=== PATIENT | female | born 1990 | race Caucasian/White ===

== ENCOUNTER 2020-07-15 18:37 | Inpatient (IN) ==
[2020-07-15] MEDS ORDERED: ICU PROTOCOL FOR HYPERGLYCEMIA PRN ×2 (20:15→20:46)
[2020-07-15] MEDS ORDERED: PROPOFOL IV EMULSION 10 MG/ML 100 ML VIAL IV ONE (20:20)
[2020-07-15] MEDS ORDERED: fentaNYL citrate 100 MCG/2 ML VIAL IV PRN (20:46)
[2020-07-15] MEDS ORDERED: STAT IV Infusion **Titration per Protocol STA (20:46)
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
--- NOTE | 2020-07-15 21:08 | History & Physical Report ---
Date of Service July 15, 2020 Assessment & Plan (1) Admitted to intensive care unit: Direct admission to ICU. Patient is ventilated therefore care directed by ICU team. Discussed case with Yair Florez PA-C. (2) Respiratory failure: Hypoxic. Resolved with mechanical ventilation. Managed per ICU team. (3) Polysubstance overdose: Suspected Ativan and doxepin overdose. (4) Suicide attempt: Consult psychiatry once patient is extubated. (5) Intentional drug overdose: (6) Hypokalemia: In ER at [facility]. Now resolved with IV replacement in ER. (7) Aspiration pneumonia: Continue Unasyn per ICU recommendations. SARS-COV-2 negative at [facility]. (8) Anxiety: PDMP confirmation patient prescribed lorazepam 1mg TID as outpatient (9) Depression: (10) Asthma: (11) DVT prophylaxis: Hepatin 5000 units SQ BID Admission and Anticipated Discharge Date Admission Date: July 15, 2020 History of Present Illness Chief Complaint: Polysubstance overdose Primary Care Provider: Irineo Ridley Hali Lopez is a 29 year old female who presents as direct admission from [facility] due to a drug overdose (suspected doxepin and Ativan). She was found unresponsive by her mother after suicidal text messages and brought via EMS. Two empty bottles of Ativan and doxepin were found with the patient with a fifth of liquor. She was in acute respiratory distress at scene with minimal respiratory effort, no change with 0.4mg Narcan. On arrival to ER patient was bagged with ambo-bag and subsequently intubated and mechanically ventilated. In depth history was taken from the mother by ICU OPAL and discussed with myself. Please see Critical care consult for in depth collateral history from her mother. In [facility] ER she underwent CT head showing no evidence of acute intracranial or skull abnormality. Influenza and COVID-19 PCR negative. Urine toxicology negative for amphetamines, barbiturates, benzodiazepines, ca nnabinoids, cocaine, opiates and phencyclidine. Alcohol level 29 mg/dL. Other labs relatively unremarkable other than potassium level 2.7 which was treated with x4 doses KCl IV 40meq. Allergies Allergy/AdvReac Type Severity Reaction Status Date / Time No Known Allergies Allergy Unverified 07/15/20 20:44 Past Med/Surg History Medical History (Updated 07/16/20 @ 11:55 by Gary Handy MD) Anxiety Asthma Depression Social History Smoking Status: Current every day smoker Cigarettes Per Day: 1 pack per day; Hx Alcohol Use: Yes Hx Substance Use: Yes Preferred Language: Estonian Communication Ability: Unable Drugless Physician Required: No Beliefs That Will Affect Care: None Current Living Situation: Alone Current Living Situation Comment: lives w/ kids Feels Safe at Home: Yes Safety Concerns: Feels Safe At This Time Assistive Devices: None Review of Systems Review of Systems: Unobtainable due to cognitive status Physical Exam Constitutional: + morbidly obese; + not well nourished Eyes: + anicteric sclerae and + abnormal pupil size (bilateral equal 2mm) Respiratory: Auscultation: + rhonchi (bilateral anteriorly); no wheezes Intubated and ventilated Gastrointestinal (Abdomen): Inspection/Auscultation: + hypoactive bowel sounds Percussion/Palpation: abdomen soft (obese) Skin: no rashes, warm and dry (no areas of cellulitis seen) Neurologic: + not awake (sedated) Results & Data Results & Data ([facility]) Vital Signs (Past 12 Hours) Vital Signs Temp Pulse Resp BP Pulse Ox 07/15/20 20:53 36.4 C L 89 16 115/76 95 Code Status & VTE Plan Code Status Full VTE Prophylaxis Plan VTE Prophylaxis will be ordered: Yes PG Care Time/CCT Total # of Minutes Spent Total Time Spent with Patient: Total time spent is greater than 50% in coordination of care (as documented) at patient's floor/unit and/or counseling patient: Coding Level of Care Code 82195 Initial Inpt Care Lvl 2 Diagnoses Admitted to intensive care unit Z78.9 Respiratory failure J96.90 Polysubstance overdose T50.901A Suicide attempt T14.91XA Intentional drug overdose T50.902A Hypokalemia E87.6 Aspiration pneumonia J69.0 Anxiety F41.9 Depression F32.9 Asthma J45.909 DVT prophylaxis Z29.9
[2020-07-15 21:24] LABS: Basophils # (auto) 0.01 K/uL (0-0.2); Basophils % (auto) 0.2 %; Eosinophils # (auto) 0.19 K/uL (0-0.5); Eosinophils % (auto) 3.5 %; Hemoglobin 11.7 g/dL (12.0-16.0); Immature Granulocytes # (auto) 0.02 K/uL (0.00-0.02); Immature Granulocytes % (auto) 0.4 %; Lymphocytes # (auto) 1.76 K/uL (1.2-3.4); Lymphocytes % (auto) 32.1 %; Mean Corpuscular Volume 89.1 fL (80-100); Mean Platelet Volume 9.4 fL (7.4-10.4); Monocytes # (auto) 0.29 K/uL (0.11-0.59); Monocytes % (auto) 5.3 %; Neutrophils # (auto) 3.22 K/uL (1.4-6.5); Neutrophils % (auto) 58.5 %; Platelet Count 227 K/uL (130-400); RDW Coefficient of Variation 14.4 % (11.5-14.5); RDW Standard Deviation 47.3 fL (36.4-46.3); Red Blood Count 4.04 M/uL (4.2-5.4); White Blood Count 5.49 K/uL (4.8-10.8)
[2020-07-15 21:43] LABS: Albumin Level 3.1 gm/dl (3.4-5.0); BUN Creatinine Ratio 9.7 (10-20); Bilirubin Direct 0.2 mg/dl (0-0.2); Calcium 7.8 mg/dl (8.5-10.1); Creatinine Clr Calc Pharmacy 160.5 ml/min; Est GFR (African American) 125.1; Magnesium 1.9 mg/dl (1.8-2.4); Potassium 3.7 mmol/L (3.5-5.1)
[2020-07-15 21:45] LABS: Mean Corpuscular Hgb Conc 32.5 g/dL (32-36)
[2020-07-15 21:46] LABS: Bilirubin,Total 0.3 mg/dl (0.2-1); Phosphorus 2.7 mg/dl (2.5-4.9); Total Protein 5.9 gm/dl (6.4-8.2)
[2020-07-15 21:47] LABS: Salicylate 2.3 mg/dl (2.8-20)
[2020-07-15] MEDS: propofoL 1,000 MG/100 ML VIAL IV SCH (21:51)
[2020-07-15] MEDS: FAMOTIDINE 20 MG in SYRINGE 3 ML IV SCH (21:52)
[2020-07-15] MEDS: HEPARIN SOD 5,000 UNIT/0.5 ML VIAL SQ SCH (21:52)
[2020-07-15 21:56] LABS: iSTAT Allen Test Pass; iSTAT Arterial Blood Gas HCO3 24 meg/L (19-24); iSTAT Arterial Blood Gas pCO2 39 mmHg (35-46); iSTAT Arterial Blood Gas pH 7.39 (7.35-7.45); iSTAT Arterial Blood Gas pO2 95 mmHg (80-95); iSTAT Carbon Dioxide 25 mmol/L (24-31); iSTAT FiO2 40 %; iSTAT Site R Radial
[2020-07-15] MEDS: NORMOSOL-R 1,000 ML IV SCH (21:56)
[2020-07-15] MEDS: AMPICILLIN/SULBACTAM SOD 3,000 MG in 0.9 % SODIUM CHLORIDE 100 ML IV SCH (21:57)
[2020-07-16 00:17] LABS: Pregnancy Test, Urine Negative (Negative)
[2020-07-16 00:38] LABS: Amphetamines+Metham, Urine Neg (Neg); Barbiturates, Urine Neg (Neg); Benzodiazepine, Urine Pos (Neg); Cocaine, Urine Neg (Neg); MDMA (Ecstacy), Urine Neg (Neg); Methadone, Urine Neg (Neg); Opiate, Urine Neg (Neg); Phencyclidine, Urine Neg (Neg)
[2020-07-16] MEDS: propofoL 1,000 MG/100 ML VIAL IV SCH ×5 (01:48→23:43)
[2020-07-16] MEDS: AMPICILLIN/SULBACTAM SOD 3,000 MG in 0.9 % SODIUM CHLORIDE 100 ML IV SCH ×4 (04:50→23:18)
[2020-07-16 05:19] LABS: iSTAT Allen Test Pass; iSTAT Arterial Blood Gas HCO3 24 meg/L (19-24); iSTAT Arterial Blood Gas pCO2 42 mmHg (35-46); iSTAT Arterial Blood Gas pH 7.36 (7.35-7.45); iSTAT Arterial Blood Gas pO2 69 mmHg (80-95); iSTAT Carbon Dioxide 25 mmol/L (24-31); iSTAT FiO2 40 %; iSTAT Site R Radial
[2020-07-16 05:28] LABS: Basophils # (auto) 0.01 K/uL (0-0.2); Basophils % (auto) 0.1 %; Eosinophils # (auto) 0.14 K/uL (0-0.5); Eosinophils % (auto) 1.6 %; Hematocrit (blood only) 37.3 % (37-47); Hemoglobin 11.6 g/dL (12.0-16.0); Immature Granulocytes # (auto) 0.02 K/uL (0.00-0.02); Immature Granulocytes % (auto) 0.2 %; Lymphocytes # (auto) 1.29 K/uL (1.2-3.4); Lymphocytes % (auto) 14.7 %; Mean Corpuscular Hemoglobin 28.1 pg (25-34); Mean Corpuscular Hgb Conc 31.1 g/dL (32-36); Mean Corpuscular Volume 90.3 fL (80-100); Mean Platelet Volume 9.6 fL (7.4-10.4); Monocytes # (auto) 0.51 K/uL (0.11-0.59); Monocytes % (auto) 5.8 %; Neutrophils % (auto) 77.6 %; Platelet Count 217 K/uL (130-400); RDW Coefficient of Variation 14.6 % (11.5-14.5); RDW Standard Deviation 48.1 fL (36.4-46.3); Red Blood Count 4.13 M/uL (4.2-5.4); White Blood Count 8.77 K/uL (4.8-10.8)
[2020-07-16] MEDS ORDERED: ALBUT/IPRATROP 3MG/0.5MG NEB 3 ML VIAL NEB STA ×2 (05:33→06:00)
[2020-07-16 05:48] LABS: Prothrombin Time 10.8 Seconds (9.0-12.0)
[2020-07-16 05:58] LABS: Alanine Aminotransferase 15 U/L (12-78); Albumin Level 2.9 gm/dl (3.4-5.0); Aspartate Aminotransferase 13 U/L (15-37); BUN Creatinine Ratio 10.9 (10-20); Blood Urea Nitrogen 9 mg/dl (7-18); Calcium 7.8 mg/dl (8.5-10.1); Carbon Dioxide 27 mmol/L (21-32); Chloride 114 mmol/L (98-107); Creatinine Clr Calc Pharmacy 141.4 ml/min; Est GFR (African American) 107.3; Est GFR (Non-African American) 92.6; Glucose 88 mg/dl (70-99); Magnesium 2.2 mg/dl (1.8-2.4); Potassium 4.1 mmol/L (3.5-5.1); Sodium 143 mmol/L (136-145)
[2020-07-16 06:22] LABS: Alkaline Phosphatase 82 U/L (45-117); Bilirubin,Total 0.5 mg/dl (0.2-1); Phosphorus 2.1 mg/dl (2.5-4.9); Total Protein 5.8 gm/dl (6.4-8.2)
[2020-07-16 06:26] LABS: Bilirubin Direct < 0.1 mg/dl (0-0.2)
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
--- NOTE | 2020-07-16 06:58 | XRay Report ---
XR chest 1V portable CLINICAL HISTORY: Respiratory failure COMPARISON STUDY: 07/15/2020 FINDINGS: There is an endotracheal tube 5 cm above the maryse. There is a nasogastric tube which pass es into the stomach. The heart is normal in size. There are patchy bibasilar airspace opacity similar to the preceding study..[ IMPRESSION: 1. Endotracheal tube 5 cm above the maryse 2. Patchy bibasilar airspace opacity similar to the preceding study ACT 112: Negative or not required by law. Electronically signed by: John Arce M.D. 07/16/2020 6:57 AM
[2020-07-16] MEDS: PROPOFOL BOLUS FROM BAG IV PRN ×5 (07:05→16:01)
--- NOTE | 2020-07-16 07:34 | XRay Report ---
SINGLE VIEW CHEST CLINICAL HISTORY: Respiratory failure. Intubation. FINDINGS: An AP, portable, upright chest radiograph is compared to study performed earlier the same d ay 07/15/2020. The examination is degraded by portable technique and patient rotation. An endotrachea l tube is unchanged in position. The tip projects 2 cm above the maryse. An enteric tube has been tiffanie nichole. The tip projects below the diaphragm. The cardiomediastinal silhouette is unremarkable. There ar e low lung volumes. Bibasilar airspace opacities are noted. There is no large pleural effusion or pne umothorax. Triangular density along the right heart border may represent middle lobe atelectasis. The bony thorax is grossly intact. IMPRESSION: 1. Endotracheal and enteric tubes are in place as above. 2. Low lung volumes with bibasilar airspace opacities. This could represent atelectasis versus a mild infectious/inflammatory pneumonitis and clinical correlation will be required. 3. Question right middle lobe atelectasis. ACT 112: Negative or not required by law. Electronically signed by: Jose L Padron M.D. 07/16/2020 7:33 AM
[2020-07-16] MEDS: HEPARIN SOD 5,000 UNIT/0.5 ML VIAL SQ SCH ×2 (08:22→23:42)
[2020-07-16] MEDS: FAMOTIDINE 20 MG in SYRINGE 3 ML IV SCH ×2 (08:26→23:42)
[2020-07-16] MEDS: NORMOSOL-R 1,000 ML IV SCH ×3 (10:13→23:45)
[2020-07-16] MEDS ORDERED: METOCLOPRAMIDE HCL INJ 5 MG/ML 2 ML VIAL IV ONE (10:15)
--- NOTE | 2020-07-16 11:51 | Hospitalist Progress Note ---
Date of Service July 16, 2020 Assessment & Plan (1) Polysubstance overdose: Suspected Ativan and doxepin overdose. - ICU team weaning sedation as able for eventual extubation. (2) Aspiration pneumonia: Episode of emesis the morning of 07/16 with vomitus near the ET tube. - Continue Unasyn per ICU (3) Respiratory failure: Hypoxic. Resolved with mechanical ventilation, but had episode of emesis around ET tube on 07/16. - Managed per ICU team. (4) Suicide attempt: - Consult psychiatry once patient is extubated. (5) Anxiety: - Monitor once patient is extubated. (6) Asthma: - DuoNebs PRN (7) DVT prophylaxis: Heparin 5,000 units SQ Q12h Admission and Anticipated Discharge Date Admission Date: July 15, 2020 Subjective Intubated and unresponsive. Review of Systems 2 Review of Systems: Unobtainable due to endotracheal tube and Unobtainable due to reduced consciousness Physical Exam Constitutional: WD/WN, vitals as above + disheveled and + lethargic ENMT: external ear and nose normal, oropharynx normal Mouth / Teeth: 1. Intubated Neck: trachea midline, no thyromegaly normal visual inspection Respiratory: + respiratory distress and + tachypneic Cardiovascular: Rate/Rhythm: regular rhythm and + tachycardic Heart Sounds: normal S1 and normal S2 Gastrointestinal (Abdomen): Inspection/Auscultation: abdomen normal to inspection; abdomen not distended Musculoskeletal: no cyanosis or clubbing, extremities motor strength 5/5 Skin: no rashes, warm and dry Neurologic: + does not move all extremities and + not awake Psychiatric: Orientation: + not alert and + not oriented to person Results & Data Results & Data ([facility]) Vital Signs (Past 12 Hours) Vital Signs Temp Pulse Resp BP Pulse Ox 07/16/20 08:41 102 H 25 H 98 07/16/20 06:06 102 H 97/52 L 98 07/16/20 06:00 16 07/16/20 05:57 104 H 97/43 L 92 07/16/20 05:51 107 H 98/50 L 91 07/16/20 05:20 94 H 102/57 L 89 L 07/16/20 05:10 89 16 95 07/16/20 05:06 36.6 C 88 83/47 L 96 07/16/20 04:06 36.4 C L 86 91/55 L 98 07/16/20 03:40 36.3 C L 87 96/54 L 97 07/16/20 03:06 36.2 C L 86 96/54 L 98 07/16/20 02:33 88 16 95 07/16/20 02:06 36.1 C L 84 91/51 L 97 07/16/20 01:06 36.0 C L 85 94/53 L 95 07/16/20 00:06 35.7 C L 90 112/67 96 07/16/20 00:00 88 PG Care Time/CCT Total # of Minutes Spent Total Time Spent with Patient: Total time spent is greater than 50% in coordination of care (as documented) at patient's floor/unit and/or counseling patient: Coding Level of Care Code 31001 Subseq Hosp Care Lvl 3 Diagnoses Polysubstance overdose T50.901A Aspiration pneumonia J69.0 Aspiration pneumonia type: due to vomit Laterality: right Lung location: middle lobe of lung Respiratory failure J96.00 Chronicity: acute Respiratory failure complication: unspecified whether with hypoxia or hypercapnia Suicide attempt T14.91XA Anxiety F41.9 Asthma J45.909 DVT prophylaxis Z29.9 (1) Respiratory failure Chronicity: acute Respiratory failure complication: unspecified whether with hypoxia or hypercapnia Qualified Code(s): J96.00 - Acute respiratory failure, unspecified whether with hypoxia or hypercapnia (2) Aspiration pneumonia Aspiration pneumonia type: due to vomit Laterality: right Lung location: middle lobe of lung Qualified Code(s): J69.0 - Pneumonitis due to inhalation of food and vomit
--- NOTE | 2020-07-16 12:08 | Electrocardiogram Report ---
Test Reason : Blood Pressure : / mmHG Vent. Rate : 093 BPM Atrial Rate : 093 BPM P-R Int : 170 ms QRS Dur : 098 ms QT Int : 386 ms P-R-T Axes : 064 073 031 degrees QTc Int : 479 ms Normal sinus rhythm Normal ECG No previous ECGs available Confirmed by Sanjeev Worrell ([id number]) on 07/16/2020 12:07:33 PM Referred By: Peyman Roe Confirmed By:Sanjeev Worrell
--- NOTE | 2020-07-16 12:15 | Electrocardiogram Report ---
Test Reason : Blood Pressure : / mmHG Vent. Rate : 087 BPM Atrial Rate : 087 BPM P-R Int : 170 ms QRS Dur : 088 ms QT Int : 386 ms P-R-T Axes : 052 070 045 degrees QTc Int : 464 ms Normal sinus rhythm Normal ECG When compared with ECG of 15-JUL-2020 20:13, (unconfirmed) No significant change was found Confirmed by Sanjeev Worrell ([id number]) on 07/16/2020 12:15:08 PM Referred By: Peyman Roe Confirmed By:Sanjeev Worrell
--- NOTE | 2020-07-16 12:18 | Electrocardiogram Report ---
Test Reason : Blood Pressure : / mmHG Vent. Rate : 095 BPM Atrial Rate : 095 BPM P-R Int : 156 ms QRS Dur : 090 ms QT Int : 384 ms P-R-T Axes : 051 075 045 degrees QTc Int : 482 ms Normal sinus rhythm Prolonged QT Abnormal ECG When compared with ECG of 16-JUL-2020 00:50, (unconfirmed) No significant change was found Confirmed by Sanjeev Worrell ([id number]) on 07/16/2020 12:18:05 PM Referred By: Peyman Roe Confirmed By:Sanjeev Worrell
--- NOTE | 2020-07-16 12:25 | Electrocardiogram Report ---
Test Reason : Blood Pressure : / mmHG Vent. Rate : 118 BPM Atrial Rate : 118 BPM P-R Int : 150 ms QRS Dur : 094 ms QT Int : 350 ms P-R-T Axes : 070 072 005 degrees QTc Int : 490 ms Sinus tachycardia Nonspecific T wave abnormality Abnormal ECG When compared with ECG of 16-JUL-2020 04:57, (unconfirmed) Inverted T waves have replaced nonspecific T wave abnormality in Inferior leads Nonspecific T wave abnormality now evident in Anterolateral leads Confirmed by Sanjeev Worrell ([id number]) on 07/16/2020 12:25:00 PM Referred By: Peyman Roe Confirmed By:Sanjeev Worrell
--- NOTE | 2020-07-16 12:34 | Electrocardiogram Report ---
Test Reason : Blood Pressure : / mmHG Vent. Rate : 109 BPM Atrial Rate : 109 BPM P-R Int : 142 ms QRS Dur : 090 ms QT Int : 354 ms P-R-T Axes : 057 077 023 degrees QTc Int : 476 ms Sinus tachycardia Otherwise normal ECG When compared with ECG of 16-JUL-2020 08:12, No significant change was found Confirmed by Sanjeev Worrell ([id number]) on 07/16/2020 12:34:02 PM Referred By: Peyman Roe Confirmed By:Sanjeev Worrell
[2020-07-16] MEDS ORDERED: NORMOSOL-R 250 ML IV ONE (15:28)
[2020-07-16] MEDS ORDERED: POTASSIUM PHOS 3 MMOL/1 ML INFUSION IV STA (15:30)
[2020-07-16] MEDS ORDERED: POTASSIUM PHOSPHATE 15 MMOL in SODIUM CHLORIDE 0.9% 250 ML IV ONE (16:00)
[2020-07-16] MEDS: ALBUT/IPRATROP 3MG/0.5MG NEB 3 ML VIAL INH SCH ×2 (20:00→23:01)
[2020-07-16] MEDS ORDERED: ALBUT/IPRATROP 3MG/0.5MG NEB 3 ML VIAL INH SCH (23:00)
[2020-07-17] MEDS: ALBUT/IPRATROP 3MG/0.5MG NEB 3 ML VIAL INH SCH ×2 (03:26→08:32)
[2020-07-17] MEDS: propofoL 1,000 MG/100 ML VIAL IV SCH ×2 (03:46→13:36)
[2020-07-17 04:30] LABS: Basophils # (auto) 0.01 K/uL (0-0.2); Basophils % (auto) 0.2 %; Eosinophils % (auto) 1.7 %; Hematocrit (blood only) 32.9 % (37-47); Hemoglobin 10.5 g/dL (12.0-16.0); Immature Granulocytes # (auto) 0.03 K/uL (0.00-0.02); Immature Granulocytes % (auto) 0.5 %; Lymphocytes % (auto) 20.6 %; Mean Corpuscular Hemoglobin 28.8 pg (25-34); Mean Corpuscular Hgb Conc 31.9 g/dL (32-36); Mean Corpuscular Volume 90.1 fL (80-100); Mean Platelet Volume 9.7 fL (7.4-10.4); Monocytes # (auto) 0.33 K/uL (0.11-0.59); Monocytes % (auto) 5.7 %; Neutrophils # (auto) 4.15 K/uL (1.4-6.5); Neutrophils % (auto) 71.3 %; Platelet Count 183 K/uL (130-400); RDW Coefficient of Variation 15.1 % (11.5-14.5); RDW Standard Deviation 49.6 fL (36.4-46.3); Red Blood Count 3.65 M/uL (4.2-5.4); White Blood Count 5.82 K/uL (4.8-10.8)
[2020-07-17 04:58] LABS: Alanine Aminotransferase 16 U/L (12-78); Albumin Level 2.7 gm/dl (3.4-5.0); Alkaline Phosphatase 79 U/L (45-117); Aspartate Aminotransferase 20 U/L (15-37); BUN Creatinine Ratio 12.2 (10-20); Bilirubin Direct < 0.1 mg/dl (0-0.2); Bilirubin,Total 0.4 mg/dl (0.2-1); Blood Urea Nitrogen 10 mg/dl (7-18); Calcium 7.6 mg/dl (8.5-10.1); Carbon Dioxide 29 mmol/L (21-32); Chloride 111 mmol/L (98-107); Creatinine Clr Calc Pharmacy 138.3 ml/min; Est GFR (African American) 104.3; Glucose 91 mg/dl (70-99); Magnesium 2.5 mg/dl (1.8-2.4); Potassium 3.3 mmol/L (3.5-5.1); Sodium 142 mmol/L (136-145); Total Protein 5.5 gm/dl (6.4-8.2)
[2020-07-17] MEDS: AMPICILLIN/SULBACTAM SOD 3,000 MG in 0.9 % SODIUM CHLORIDE 100 ML IV SCH ×4 (05:36→22:02)
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
[2020-07-17 07:42] LABS: Phosphorus 3.1 mg/dl (2.5-4.9)
[2020-07-17] MEDS: NORMOSOL-R 1,000 ML IV SCH ×2 (07:46→14:23)
[2020-07-17] MEDS: POTASSIUM CHLORIDE / WTR 10 MEQ/100 ML PLCT IV SCH ×4 (09:34→15:14)
[2020-07-17] MEDS: FAMOTIDINE 20 MG in SYRINGE 3 ML IV SCH (09:34)
[2020-07-17] MEDS: HEPARIN SOD 5,000 UNIT/0.5 ML VIAL SQ SCH ×2 (09:34→22:02)
--- NOTE | 2020-07-17 09:34 | XRay Report ---
KUB HISTORY: Acute generalized abdominal pain OD, eval ?ileus/SBO s/p injestion COMPARISON: Chest radiograph of same day FINDINGS: Enteric tube distal tip projects over the central abdomen the expected location of the mid to distal gastric body. Bowel gas pattern is nonobstructive. No renal calculi. No ureteral calculi. No pneumoperitoneum or pneumatosis. No fracture. IMPRESSION: 1. Distal tip of enteric tube projects in the expected location of the mid to distal gastric lumen. 2. Nonobstructive bowel gas pattern. ACT 112: Negative or not required by law. The above report was generated using voice recognition software. It may contain grammatical, syntax o r spelling errors. Electronically signed by: Hero Patrick M.D. 07/17/2020 9:33 AM
--- NOTE | 2020-07-17 09:43 | XRay Report ---
XR chest 1V portable HISTORY: 29 years-old Female intubated acute respiratory failure COMPARISON: Chest radiograph 07/16/2020 TECHNIQUE: Portable AP view the chest FINDINGS: Cardiomediastinal and hilar silhouettes are unchanged. Mild right hemidiaphragmatic elevation. Endotr acheal tube overlies the midline, 4.7 cm superior to the maryse. Enteric tube courses below the diaph ragm, distal tip outside the [id number]. Have progressively worsened medial right lung base airspa ce opacities. The lungs are mildly hypoinflated. No pneumothorax or large pleural effusion. No overt pulmonary edema. IMPRESSION: 1. Lines and tubes as above. 2. Mildly worsened medial right lung base opacities. 3. No pneumothorax. ACT 112: Negative or not required by law. The above report was generated using voice recognition software. It may contain grammatical, syntax o r spelling errors. Electronically signed by: Hero Patrick M.D. 07/17/2020 9:42 AM
[2020-07-17] MEDS ORDERED: ALBUT/IPRATROP 3MG/0.5MG NEB 3 ML VIAL INH PRN (10:39)
[2020-07-17] MEDS ORDERED: Nursing to Pharmacy Communication SCH (11:00)
[2020-07-17] MEDS ORDERED: HALOPERIDOL LACTATE 5 MG/ML 1 ML VIAL ONE (11:03)
[2020-07-17] MEDS ORDERED: diphenhydrAMINE 50 MG/ML VIAL ONE (11:03)
[2020-07-17] MEDS ORDERED: KETAMINE HCL INJ 50 MG/ML 10 ML VIAL ONE (11:07)
--- NOTE | 2020-07-17 13:11 | Hospitalist Progress Note ---
Date of Service July 17, 2020 Assessment & Plan (1) Polysubstance overdose: Suspected Ativan and doxepin overdose. Also uses TCAs for depression and notes indicate overdose of this as well. - Still lethargic, but answering questions. (2) Aspiration pneumonia: Episode of emesis the morning of 07/16 with vomitus near the ET tube. - Continue Unasyn per ICU (3) Respiratory failure: Hypoxic. Resolved with mechanical ventilation, but had episode of emesis around ET tube on 07/16. - Managed per ICU team. - Extubated on 07/17. (4) Suicide attempt: - Consult psychiatry once patient is extubated. (5) Anxiety: - Monitor once patient is extubated. (6) Asthma: - DuoNebs PRN (7) DVT prophylaxis: Heparin 5,000 units SQ Q12h Admission and Anticipated Discharge Date Admission Date: July 15, 2020 Subjective Sleeping today after extubation. Just asks that she be "allowed to sleep." Reports no fevers/chills, chest pain, shortness of breath, abdominal pain, nausea, or vomiting. Physical Exam Constitutional: WD/WN, vitals as above + disheveled and + lethargic ENMT: external ear and nose normal, oropharynx normal Neck: trachea midline, no thyromegaly normal visual inspection Respiratory: normal respiratory effort Auscultation: no crackles and no wheezes Cardiovascular: Rate/Rhythm: regular rate and regular rhythm Heart Sounds: normal S1 and normal S2 Extremities: no edema Gastrointestinal (Abdomen): Inspection/Auscultation: abdomen normal to inspection; abdomen not distended Musculoskeletal: no cyanosis or clubbing, extremities motor strength 5/5 Skin: no rashes, warm and dry Neurologic: moves all extremities and awake Psychiatric: Orientation: oriented to person; + not alert Results & Data Results & Data ([facility]) Vital Signs (Past 12 Hours) Vital Signs Temp Pulse Resp BP Pulse Ox 07/17/20 08:00 84 07/17/20 07:35 96 H 20 95 07/17/20 07:25 90 16 99 07/17/20 05:06 36.7 C 86 135/76 96 07/17/20 03:50 96 H 18 97 07/17/20 03:06 36.8 C 80 107/63 98 07/17/20 02:06 36.8 C 89 119/69 99 PG Care Time/CCT Total # of Minutes Spent Total Time Spent with Patient: Total time spent is greater than 50% in coordination of care (as documented) at patient's floor/unit and/or counseling patient: Coding Level of Care Code 99749 Subseq Hosp Care Lvl 3 Diagnoses Polysubstance overdose T50.901A Aspiration pneumonia J69.0 Aspiration pneumonia type: due to vomit Laterality: right Lung location: middle lobe of lung Respiratory failure J96.00 Chronicity: acute Respiratory failure complication: unspecified whether with hypoxia or hypercapnia Suicide attempt T14.91XA Anxiety F41.9 Asthma J45.909 DVT prophylaxis Z29.9 (1) Aspiration pneumonia Aspiration pneumonia type: due to vomit Laterality: right Lung location: middle lobe of lung Qualified Code(s): J69.0 - Pneumonitis due to inhalation of food and vomit (2) Respiratory failure Chronicity: acute Respiratory failure complication: unspecified whether with hypoxia or hypercapnia Qualified Code(s): J96.00 - Acute respiratory failure, unspecified whether with hypoxia or hypercapnia
[2020-07-17 16:59] LABS: Hepatitis B Surface Antigen Neg (Neg)
[2020-07-17 17:28] LABS: Hepatitis C IgG 13Yrs+Old_Rflx Neg (Neg)
[2020-07-17] MEDS: FAMOTIDINE 20 MG TAB PO SCH (22:02)
[2020-07-18] MEDS: AMPICILLIN/SULBACTAM SOD 3,000 MG in 0.9 % SODIUM CHLORIDE 100 ML IV SCH ×2 (04:54→10:32)
[2020-07-18 06:15] LABS: Basophils # (auto) 0.01 K/uL (0-0.2); Basophils % (auto) 0.1 %; Eosinophils # (auto) 0.18 K/uL (0-0.5); Eosinophils % (auto) 2.6 %; Hematocrit (blood only) 35.8 % (37-47); Hemoglobin 11.8 g/dL (12.0-16.0); Immature Granulocytes # (auto) 0.03 K/uL (0.00-0.02); Immature Granulocytes % (auto) 0.4 %; Lymphocytes # (auto) 1.25 K/uL (1.2-3.4); Lymphocytes % (auto) 18.2 %; Mean Corpuscular Hemoglobin 28.9 pg (25-34); Mean Corpuscular Volume 87.7 fL (80-100); Mean Platelet Volume 9.7 fL (7.4-10.4); Monocytes # (auto) 0.33 K/uL (0.11-0.59); Monocytes % (auto) 4.8 %; Neutrophils # (auto) 5.05 K/uL (1.4-6.5); Neutrophils % (auto) 73.9 %; Platelet Count 203 K/uL (130-400); RDW Coefficient of Variation 14.5 % (11.5-14.5); RDW Standard Deviation 46.8 fL (36.4-46.3); Red Blood Count 4.08 M/uL (4.2-5.4); White Blood Count 6.85 K/uL (4.8-10.8)
--- NOTE | 2020-07-18 06:21 | Electrocardiogram Report ---
Test Reason : Blood Pressure : / mmHG Vent. Rate : 096 BPM Atrial Rate : 096 BPM P-R Int : 132 ms QRS Dur : 096 ms QT Int : 360 ms P-R-T Axes : 061 085 036 degrees QTc Int : 454 ms Normal sinus rhythm Normal ECG When compared with ECG of 16-JUL-2020 12:21, No significant change was found Confirmed by Sanjeev Worrell ([id number]) on 07/18/2020 6:20:59 AM Referred By: Peyman Roe Confirmed By:Sanjeev Worrell
--- NOTE | 2020-07-18 06:39 | Electrocardiogram Report ---
Test Reason : Blood Pressure : / mmHG Vent. Rate : 088 BPM Atrial Rate : 088 BPM P-R Int : 146 ms QRS Dur : 092 ms QT Int : 364 ms P-R-T Axes : 053 066 048 degrees QTc Int : 440 ms Normal sinus rhythm Normal ECG When compared with ECG of 16-JUL-2020 17:23, (unconfirmed) No significant change was found Confirmed by Sanjeev Worrell ([id number]) on 07/18/2020 6:39:10 AM Referred By: Peyman Roe Confirmed By:Sanjeev Worrell
[2020-07-18 06:42] LABS: Albumin Level 2.8 gm/dl (3.4-5.0); BUN Creatinine Ratio 10.7 (10-20); Calcium 8.1 mg/dl (8.5-10.1); Creatinine Clr Calc Pharmacy 150.5 ml/min; Est GFR (African American) 115.6; Est GFR (Non-African American) 99.8; Magnesium 2.3 mg/dl (1.8-2.4); Potassium 3.7 mmol/L (3.5-5.1)
[2020-07-18 07:00] LABS: Bilirubin,Total 0.8 mg/dl (0.2-1); Phosphorus 3.9 mg/dl (2.5-4.9); Total Protein 6.2 gm/dl (6.4-8.2)
[2020-07-18] MEDS: HEPARIN SOD 5,000 UNIT/0.5 ML VIAL SQ SCH ×2 (09:28→22:28)
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
[2020-07-18] MEDS: FAMOTIDINE 20 MG TAB PO SCH ×2 (10:32→22:27)
[2020-07-18] MEDS: NICOTINE 21 MG/24 HR TDSY TD SCH (10:33)
[2020-07-18 11:11] LABS: Bilirubin Direct 0.2 mg/dl (0-0.2)
--- NOTE | 2020-07-18 13:22 | Hospitalist Progress Note ---
Date of Service July 18, 2020 Assessment & Plan (1) Polysubstance overdose: Suspected Ativan and doxepin overdose. Also uses TCAs for depression and notes indicate overdose of this as well. - Still lethargic, but answering questions. Easily woke up more for me today. (2) Aspiration pneumonia: Episode of emesis the morning of 07/16 with vomitus near the ET tube. - Switch to Augmentin to finish the course (End date: 07/23/2020) (3) Respiratory failure: Hypoxic. Resolved with mechanical ventilation, but had episode of emesis around ET tube on 07/16. - Managed per ICU team. - Extubated on 07/17. Presently down to 1L nasal cannula. (4) Suicide attempt: Consulted psychiatry once patient was extubated. - Plan for inpatient rehab stay. (5) Anxiety: - Monitor (6) Asthma: - DuoNebs PRN (7) DVT prophylaxis: Heparin 5,000 units SQ Q12h Admission and Anticipated Discharge Date Admission Date: July 15, 2020 Subjective Her most significant concern today is when she can start saving breast milk for her son. Reports no fevers/chills, chest pain, shortness of breath, abdominal pain, nausea, or vomiting. Physical Exam Constitutional: WD/WN, vitals as above + disheveled and + lethargic ENMT: external ear and nose normal, oropharynx normal Neck: trachea midline, no thyromegaly normal visual inspection Respiratory: normal respiratory effort Auscultation: no crackles and no wheezes Cardiovascular: Rate/Rhythm: regular rate and regular rhythm Heart Sounds: normal S1 and normal S2 Extremities: no edema Gastrointestinal (Abdomen): Inspection/Auscultation: abdomen normal to inspection; abdomen not distended Musculoskeletal: no cyanosis or clubbing, extremities motor strength 5/5 Skin: no rashes, warm and dry Neurologic: moves all extremities and awake Psychiatric: Orientation: oriented to person; + not alert Results & Data Results & Data ([facility]) Vital Signs (Past 12 Hours) Vital Signs Pulse 07/18/20 07:38 86 PG Care Time/CCT Total # of Minutes Spent Total Time Spent with Patient: Total time spent is greater than 50% in coordination of care (as documented) at patient's floor/unit and/or counseling patient: Coding Level of Care Code 96762 Subseq Hosp Care Lvl 3 Diagnoses Polysubstance overdose T50.901A Aspiration pneumonia J69.0 Aspiration pneumonia type: due to vomit Laterality: right Lung location: middle lobe of lung Respiratory failure J96.00 Chronicity: acute Respiratory failure complication: unspecified whether with hypoxia or hypercapnia Suicide attempt T14.91XA Anxiety F41.9 Asthma J45.909 DVT prophylaxis Z29.9 (1) Aspiration pneumonia Aspiration pneumonia type: due to vomit Laterality: right Lung location: middle lobe of lung Qualified Code(s): J69.0 - Pneumonitis due to inhalation of food and vomit (2) Respiratory failure Chronicity: acute Respiratory failure complication: unspecified whether with hypoxia or hypercapnia Qualified Code(s): J96.00 - Acute respiratory failure, unspecified whether with hypoxia or hypercapnia
[2020-07-18] MEDS: AMOXICILLIN/CLAVULANATE 875 MG TAB PO SCH (16:53)
[2020-07-18] MEDS ORDERED: diphenhydrAMINE Capsule 25 MG CAP PO PRN (18:26)
[2020-07-18] MEDS: MELATONIN 3 MG TAB PO SCH (21:33)
[2020-07-19 00:43] LABS: 7-Aminoclonaz, Confirm NEGATIVE ng/mL (<25); Hydro-Alp Ur, GC/MS NEGATIVE ng/mL (<25); Hydroxyethylflurazepam, Conf NEGATIVE ng/mL (<50); Hydroxymidazolam Ur, GC/MS NEGATIVE ng/mL (<50); Hydroxytriazolam NEGATIVE ng/mL (<50); Lorazepam, Ur GC/MS >2000 ng/mL (<50); Marijuana Quant, GCMS Urine 80 ng/mL (<5); Nordiazepam, Confirm NEGATIVE ng/mL (<50); Oxazepam Ur, GC/MS NEGATIVE ng/mL (<50); Temazepam, Confirm NEGATIVE ng/mL (<50)
[2020-07-19] MEDS: BENZONATATE 100 MG CAPSULE PO SCH ×4 (00:45→20:12)
[2020-07-19] MEDS: guaiFENesin/DEXTROM SYRUP 100MG/10MG 5ML UDC PO PRN ×2 (00:45→09:33)
[2020-07-19] MEDS: AMOXICILLIN/CLAVULANATE 875 MG TAB PO SCH ×2 (08:13→17:03)
[2020-07-19] MEDS: FAMOTIDINE 20 MG TAB PO SCH ×2 (08:14→20:06)
[2020-07-19] MEDS: NICOTINE 21 MG/24 HR TDSY TD SCH (09:32)
[2020-07-19] MEDS: HEPARIN SOD 5,000 UNIT/0.5 ML VIAL SQ SCH ×2 (09:33→20:13)
--- NOTE | 2020-07-19 10:09 | Communication Note ---
Date of Service: July 19, 2020 I was called by training and documentation specialist who is following the case, she confered with specialist from [facility], who recommend continuing pumping her breast milk and disgarding it thru 07/20/20
[2020-07-19] MEDS: ACETAMINOPHEN 325 MG TAB PO PRN ×2 (11:06→15:42)
[2020-07-19] MEDS ORDERED: hydrOXYzine HCl 10 MG TAB PO PRN (13:03)
[2020-07-19] MEDS: hydrOXYzine HCl 25 MG TAB PO PRN (17:02)
--- NOTE | 2020-07-19 18:19 | Hospitalist Progress Note ---
Date of Service July 19, 2020 Assessment & Plan (1) Polysubstance overdose: Suspected Ativan and doxepin overdose. Also uses TCAs for depression and notes indicate overdose of this as well. - Not lethargic at this point. Ready for discharge. (2) Aspiration pneumonia: Episode of emesis the morning of 07/16 with vomitus near the ET tube. - Switch to Augmentin to finish the course (End date: 07/23/2020) (3) Respiratory failure: Hypoxic. Resolved with mechanical ventilation, but had episode of emesis around ET tube on 07/16. - Managed per ICU team. - Extubated on 07/17. Presently down to room air. (4) Suicide attempt: Consulted psychiatry once patient was extubated. Now on 302. - Plan for inpatient rehab stay. (5) Anxiety: - Monitor (6) Asthma: - DuoNebs PRN (7) DVT prophylaxis: Heparin 5,000 units SQ Q12h Admission and Anticipated Discharge Date Admission Date: July 15, 2020 Physical Exam Constitutional: WD/WN, vitals as above + disheveled and + lethargic ENMT: external ear and nose normal, oropharynx normal Neck: trachea midline, no thyromegaly normal visual inspection Respiratory: normal respiratory effort Auscultation: no crackles and no wheezes Cardiovascular: Rate/Rhythm: regular rate and regular rhythm Heart Sounds: normal S1 and normal S2 Extremities: no edema Gastrointestinal (Abdomen): Inspection/Auscultation: abdomen normal to inspection; abdomen not distended Musculoskeletal: no cyanosis or clubbing, extremities motor strength 5/5 Skin: no rashes, warm and dry Neurologic: moves all extremities and awake Psychiatric: Orientation: oriented to person; + not alert Results & Data Results & Data ([place]) Vital Signs (Past 12 Hours) Vital Signs Temp Pulse Resp BP BP Pulse Ox 07/19/20 13:16 36.7 C 104 H 20 108/66 113/79 95 07/19/20 07:26 36.7 C 104 H 20 108/66 95 PG Care Time/CCT Total # of Minutes Spent Total Time Spent with Patient: Total time spent is greater than 50% in coordination of care (as documented) at patient's floor/unit and/or counseling patient: Coding Level of Care Code 60542 Subseq Hosp Care Lvl 2 Diagnoses Polysubstance overdose T50.901A Aspiration pneumonia J69.0 Aspiration pneumonia type: due to vomit Laterality: right Lung location: middle lobe of lung Respiratory failure J96.00 Chronicity: acute Respiratory failure complication: unspecified whether with hypoxia or hypercapnia Suicide attempt T14.91XA Anxiety F41.9 Asthma J45.909 DVT prophylaxis Z29.9 (1) Aspiration pneumonia Aspiration pneumonia type: due to vomit Laterality: right Lung location: middle lobe of lung Qualified Code(s): J69.0 - Pneumonitis due to inhalation of food and vomit (2) Respiratory failure Chronicity: acute Respiratory failure complication: unspecified whether with hypoxia or hypercapnia Qualified Code(s): J96.00 - Acute respiratory failure, unspecified whether with hypoxia or hypercapnia
[2020-07-19] MEDS ORDERED: PRENATAL VITAMIN 1 TAB PO SCH (18:45)
[2020-07-19] MEDS ORDERED: LORazepam 1 MG TAB PO PRN (18:53)
[2020-07-19] MEDS: MELATONIN 3 MG TAB PO SCH (20:05)
[2020-07-20] MEDS ORDERED: valACYclovir HCL 500 MG TABLET PO SCH ×2 (00:20→09:00)
[2020-07-20] MEDS: hydrOXYzine HCl 25 MG TAB PO PRN (00:58)
[2020-07-20] MEDS: guaiFENesin/DEXTROM SYRUP 100MG/10MG 5ML UDC PO PRN (04:17)
--- NOTE | 2020-07-20 07:00 | Discharge Summary ---
Date of Service July 20, 2020 Admission HPI Per Admitting Provider Hali Lopez is a 29 year old female who presents as direct admission from [facility] due to a drug overdose (suspected doxepin and Ativan). She was found unresponsive by her mother after suicidal text messages and brought via EMS. Two empty bottles of Ativan and doxepin were found with the patient with a fifth of liquor. She was in acute respiratory distress at scene with minimal respiratory effort, no change with 0.4mg Narcan. On arrival to ER patient was bagged with ambo-bag and subsequently intubated and mechanically ventilated. In depth history was taken from the mother by ICU OPAL and discussed with my self. Please see Critical care consult for in depth collateral history from her mother. In [facility] ER she underwent CT head showing no evidence of acute intracranial or skull abnormality. Influenza and COVID-19 PCR negative. Urine toxicology negative for amphetamines, barbiturates, benzodiazepines, cannabinoids, cocaine, opiates and phencyclidine. Alcohol level 29 mg/dL. Other labs relatively unremarkable other than potassium level 2.7 which was treated with x4 doses KCl IV 40meq. Principal Diagnosis Benzo and doxepin overdose Discharge Data Allergies Allergy/AdvReac Type Severity Reaction Status Date / Time No Known Allergies Allergy Unverified 07/15/20 20:44 Consultations 07/15/20 20:15 Consult Case Management - Discharge Planning Routine Consult Edge Trimming Machine Operator Routine 07/15/20 20:46 Consult Case Management - Discharge Planning Routine 07/15/20 21:06 Consult Behavioral Health Liaison Routine 07/18/20 08:22 Consult Psychiatry Routine Hospital Course (1) Polysubstance overdose: Suspected Ativan and doxepin overdose. Also uses TCAs for depression and notes indicate overdose of this as well. - Not lethargic at this point. Ready for discharge. (2) Aspiration pneumonia: Episode of emesis the morning of 07/16 with vomitus near the ET tube. - Switch to Augmentin to finish the course (End date: 07/23/2020) (3) Respiratory failure: Hypoxic. Resolved with mechanical ventilation, but had episode of emesis around ET tube on 07/16. - Managed per ICU team. - Extubated on 07/17. Presently down to room air. (4) Suicide attempt: Consulted psychiatry once patient was extubated. Now on 302. - Plan for inpatient rehab stay. (5) Anxiety: - Monitor (6) Asthma: - DuoNebs PRN (7) DVT prophylaxis: Heparin 5,000 units SQ Q12h NOTE: No bill for this note. I DID NOT see the patient on 07/20/2020 as she left prior to my shift. Total Time Total Time Spent Total Time Spent (In Minutes): 0 Discharge Plan Discharge Items Patient Disposition: Transfer Behavioral Health Fac Reason For Visit: ACUTE HYPOXIC RESP FAILURE,DRUG OVERDOSE Discharge Diagnosis: Intentional drug overdose Activity: Resume your previous activity Non-emergency contact: Primary Care Provider and Psychiatrist Call non-emergency contact if: your symptoms worsen Follow-up/Referrals: Irineo Ridley [Primary Care Provider] - Diet: Regular Addtl Attending Provider Instructions: Admitted on 07/15/2020 for overdose of doxepin and Ativan and alcohol. Initially required mechanical ventilation for airway protection. Now breathing o n room air. Some moderate EKG changes from her tricycylic antidepressant, but these normalized by 07/18/2020. Per pediatrics, the patient will be able to start saving her breast milk on 07/20/2020 for her son. Pending Studies at Discharge: No Stand-Alone Forms: [facility] Medications and DC Order Discharge Orders: Discharge Order (Routine); Ordered 07/20/20 Ordered By: Ju Arreguin Admission Data Admit Date/Time: 07/15/20 20:03 Attending Provider: Gary Handy Admit Provider: Peyman Roe Primary Care Provider: Irineo Ridley Other Providers: Wisam Trivedi Melissa C. Other Interventions: Discharge Summary Assessment (RN) Last Done: 07/20/20 04:34 Coding Level of Care Code None Diagnoses Polysubstance overdose T50.901A Aspiration pneumonia J69.0 Aspiration pneumonia type: due to vomit Laterality: right Lung location: middle lobe of lung Respiratory failure J96.00 Chronicity: acute Respiratory failure complication: unspecified whether with hypoxia or hypercapnia Suicide attempt T14.91XA Anxiety F41.9 Asthma J45.909 DVT prophylaxis Z29.9
[2020-07-20] MEDS ORDERED: metFORMIN HCL 500 MG TAB PO SCH (08:00)
[2020-07-26 21:07] LABS: HIV 1 RNA PCR Copies/ML <20 Copies/mL; HIV-1 RNA Log Copies/mL <1.30 Log cps/mL; Hepatitis A Antibody IgM NON-REACTIVE (NON-REACTIVE); Hepatitis B Core Antibody IgM NON-REACTIVE (NON-REACTIVE)
== END 2020-07-20 04:42 | DRG 917 ==
LOC: SUATTDRO 20:03 → 1E 20:03 → 2S 07-17 15:40 → 2W 07-18 14:53